=== PATIENT | male | born 1945 | race Caucasian/White ===

== ENCOUNTER → 2022-07-27 | Outpatient (CLI) | payer MEDICARE ==
--- NOTE | 2022-07-27 09:14 | US ---
EXAMINATION TYPE: US abdomen complete DATE OF EXAM: 07/27/2022 COMPARISON: NONE CLINICAL HISTORY: K76.9 LIVER DISEASE. TECHNIQUE: Multiple sonographic images of the abdomen are obtained. FINDINGS: EXAM MEASUREMENTS: Liver Length: 13.7 cm Gallbladder Wall: 0.3 cm CBD: 0.3 cm Spleen: 12.3 cm Right Kidney: 10.7 x 4.6 x 5.3 cm Left Kidney: 11.7 x 5.5 x 6.7 cm STATISTICAL ENGINEER NOTES: Pancreas: Obscured by bowel gas Liver: No suspicious masses identified. No ductal dilatation. Gallbladder: No stones seen Evidence for sonographic Flores's sign: No CBD: wnl Spleen: wnl Right Kidney: lower, lateral cyst measures 4.0 x 3.3 x 3.4 cm Left Kidney: exophytic cyst measures 1.6 x 1.5 x 1.6 cm Upper IVC: wnl Abd Aorta: wnl The liver is homogenous. The intrahepatic portion of the IVC and proximal abdominal aorta are within normal limits. There is no evidence of cholelithiasis. Common bile duct is unremarkable. The visu alized portions of the pancreas are homogenous. The spleen is unremarkable. Kidneys are symmetric a nd free of hydronephrosis. IMPRESSION: 1. No evidence for acute process. No evidence for hepatic mass. 2. Bilateral renal cysts. 3.
== END | disposition home or self-care (01) ==
LOC: RADUSWWP 08:07
PROVIDERS: ATTEND Internal Medicine Hematology & Oncology
DX: K76.9 Liver disease, unspecified (principal); N28.1 Cyst of kidney, acquired
CPT/HCPCS: 76700

== ENCOUNTER → 2022-08-17 | Outpatient (CLI) | payer MEDICARE ==
--- NOTE | 2022-08-18 06:36 | MR ---
EXAMINATION TYPE: MR sacroiliac joints wo con DATE OF EXAM: 08/17/2022 COMPARISON: None HISTORY: Ankylosing spondylitis of multiple sites in spine Multiplanar multiecho imaging of the sacroiliac joints performed without contrast. Sacroiliac joint spaces are fairly normal. No erosion. No evidence of bone edema. Sacrum and coccyx s egments have fairly normal alignment. There is posterior disc herniation at L5-S1 into the spinal can al towards left side. No focal bone destruction. There are multiple sigmoid diverticula. No sign of diverticulitis. IMPRESSION: No evidence of sacroiliitis. Posterior left-sided L5-S1 lumbar disc herniation.
== END | disposition home or self-care (01) ==
LOC: RADMRIMAIN 14:00
PROVIDERS: ATTEND Internal Medicine Rheumatology
DX: M51.37 Other intervertebral disc degeneration, lumbosacral region (principal); M45.0 Ankylosing spondylitis of multiple sites in spine
CPT/HCPCS: 72195

== ENCOUNTER → 2022-10-27 | Outpatient (CLI) | payer MEDICARE ==
[2022-10-27 15:16] LABS: AST 18 U/L (14-35); African American GFR (CKD) 94.6 (60.0-200.0); BUN/Creat Ratio 16.07 Ratio (12.00-20.00); Blood Urea Nitrogen 14.7 mg/dL (9.0-27.0); Calcium 9.4 mg/dL (8.7-10.3); Carbon Dioxide 31.6 mmol/L (20.0-27.5); Chloride 104 mmol/L (96-109); Glucose 93 mg/dL (70-110); Non-African American GFR(CKD) 81.6 (60.0-200.0); Potassium 3.6 mmol/L (3.5-5.5); Sodium 144 mmol/L (135-145)
[2022-10-27 15:17] LABS: ALT 17 U/L (10-49); LDL Cholesterol,Calculated 88.2 mg/dL (0.0-131.0); VLDL Calculation 15.16 mg/dL (5.00-40.00)
[2022-10-27 15:44] LABS: HCT 42.1 % (39.6-50.0); MCH 32.3 pg (27.0-32.0); MCHC 33.3 g/dL (32.0-37.0); Mean Platelet Volume 10.4 fL (9.5-12.2); NRBC Per 100 WBC 0 /100 WBCS (0.0-0.0); Platelet Count 125 X 10*3/uL (140-440); RBC 4.34 X 10*6/uL (4.40-5.60); RBC Morphology NORMAL; RDW 14.9 % (11.5-14.5); WBC 7.24 X 10*3/uL (4.50-10.00)
== END | disposition home or self-care (01) ==
LOC: LABWHC1 09:37
PROVIDERS: ATTEND Internal Medicine Cardiovascular Disease
DX: E78.2 Mixed hyperlipidemia (principal); I48.11 Longstanding persistent atrial fibrillation
CPT/HCPCS: 36415; 80048; 80061; 84443; 84450; 84460; 85027

== ENCOUNTER 2022-11-19 08:29 | Day surgery (SDC) | payer MEDICARE ==
[~2022-11-19 08:29] MED LIST: SODIUM CHLORIDE 0.9% 1,000 ML IV SCH
[2022-11-19] MEDS ORDERED: LIDOCAINE 2% INJ 20 MG/ML (2 ML VIAL) ONE (10:30)
[2022-11-19] MEDS ORDERED: PROPOFOL 10 MG/ML 20 ML VIAL IV ONE (10:30)
[2022-11-19 11:18] VITALS: TEMP 97
[2022-11-19 12:44] VITALS: RESP 16
[2022-11-19 13:07] VITALS: BP 130/74; PULSE 63
--- NOTE | 2022-11-20 00:39 | ECHOT ---
TRANSESOPHAGEAL ECHOCARDIOGRAM INDICATION: Persistent atrial fibrillation. PROCEDURE NOTE: After obtaining informed consent, transesophageal echocardiogram was performed in left lateral position using an Omniplane probe. Local and IV sedation were obtained by the [employer]. The patient tolerated the procedure well without any obvious immediate complications. FINDINGS: 1. There is no intracardiac thrombus within the left atrial appendage, left atrium, right atrium, or right ventricle. 2. Left atrium appears enlarged. 3. Right atrium and right ventricle seen within normal limits. 4. Left ventricle has normal size. Mild diffuse global hypokinesis with an ejection fraction of 50%. Aortic valve is a 3-leaflet valve. There is mild to moderate aortic regurgitation noted. There is mild mitral regurgitation noted. Mild tricuspid regurgitation noted. Interatrial septum, there is no evidence of left-to- right shunt by color-flow Doppler or [id number] shunt by agitated saline contrast study. Aorta shows mild to moderate atherosclerotic changes. MMODL / IJN: [id number] /
--- NOTE | 2022-11-20 13:21 | PCN ---
PROCEDURE NOTE CARDIOVERSION NOTE: INDICATION: Persistent atrial fibrillation. After making sure that the patient is adequately anticoagulated with Eliquis and confirming that the patient does not have an intracardiac thrombus on transesophageal echo, the patient underwent cardioversion with 150 joules of synchronized shocks at 150 joules of DC current. The patient converted to sinus rhythm following a single shock. He will continue the Eliquis that he is on. MMASHER / BRIDGERN: [id number] /
== END 2022-11-19 13:18 | disposition home or self-care (01) ==
LOC: OR 08:29
PROVIDERS: ATTEND Internal Medicine Cardiovascular Disease
DX: I48.19 Other persistent atrial fibrillation (principal); I08.3 Combined rheumatic disorders of mitral, aortic and tricuspid valves; M46.80 Other specified inflammatory spondylopathies, site unspecified; K21.9 Gastro-esophageal reflux disease without esophagitis; Z79.01 Long term (current) use of anticoagulants; Z79.52 Long term (current) use of systemic steroids; Z87.891 Personal history of nicotine dependence; Z79.899 Other long term (current) drug therapy
CPT/HCPCS: 93312; 93320; 93325; 92960; 93005; J2704; J2001

== ENCOUNTER → 2023-02-03 | Outpatient (CLI) | payer MEDICARE | END | disposition home or self-care (01) | LOC: LABWHC1 11:37 | PROVIDERS: ATTEND Internal Medicine Cardiovascular Disease | DX: I48.11 Longstanding persistent atrial fibrillation (principal) | CPT/HCPCS: 36415; 84443; 84450; 84460 ==

== ENCOUNTER → 2023-12-31 | Day surgery (SDC) | payer MEDICARE ==
[~2023-12-31] MED LIST changes: +LIDOCAINE 1% INJ 10MG/ML (20 ML MDV) ONE; +PROPOFOL 10 MG/ML 20 ML VIAL IV ONE; -SODIUM CHLORIDE 0.9% 1,000 ML IV SCH
[2023-12-31 08:50] VITALS: TEMP 97.3
[2023-12-31] MEDS: LACTATED RINGERS 1,000 ML IV SCH (08:52)
[2023-12-31] MEDS: IV FLUID CONTINUATION 1,000 ML IV ONE ×2 (08:53→09:48)
--- NOTE | 2023-12-31 10:06 | P.PCN ---
Date of Procedure: 12/31/23 Procedure(s) Performed: Brief history: Patient is a pleasant 78-year-old white male scheduled for an elective upper endoscopy as well as colonoscopy as a part of evaluation of GERD/atypical chest pain and screening for colon cancer. He was recently started on Granix 40 mg twice daily with some improvement in symptoms. Procedure performed: Esophagogastroduodenoscopy with biopsy Colonoscopy with snare polypectomy Preoperative diagnosis: GERD/Atypical chest pain Screening for colon cancer Anesthesia: MAC Procedure: After informed consent was obtained from the patient was brought into the endoscopy unit and IV sedation was administered by anesthesia under continuous monitoring. Initially upper endoscopy was done. The Olympus GF 160 video endoscope was inserted inserted into the mouth and esophagus intubated without any difficulty and was gradually advanced into the stomach and duodenum and c arefully examined. The bulb and second part of the duodenum appeared normal. The scope was then withdrawn into the stomach adequately insufflated with air and upon careful examination the antrum and body, reaching areas of erythema consistent with gastritis and biopsies were done from this area. Mucosa of the cardia and fundus appeared normal. The scope was then withdrawn into the esophagus. The GE junction was located at 40 cm to the incisors. It appeared irregular with no erythema erosions or ulcerations. Rest of the esophagus appeared normal. Patient tolerated the procedure well. At this time the patient continued to remain sedation. Initial digital rectal examination was normal. Olympus CF 160 video colonoscope was then inserted into the rectum and gradually advanced to the cecum without any difficulty. Careful examination was performed as the scope was gradually being withdrawn. The prep was excellent. There was a 1 cm polyp on the ileocecal valve that was removed b y snare polypectomy. The cecum, appeared normal. The ascending colon there was another 1 cm polyp removed by snare polypectomy. Rest of this ascending colon, transverse colon, descending colon, sigmoid colon and rectum appeared normal. Moderate sigmoid diverticulosis. Retroflexion was performed in the rectum and no lesions were noted. Patient tolerated the procedure well. Impression: 1. Upper endoscopy revealed mild antral gastritis but no evidence of esophagitis or Crane's esophagus 2. Colonoscopy revealed 1 cm polyp in the ileocecal valve and another 1 cm polyp in the ascending colon status post polypectomy and moderate sigmoid diverticulosis. Recommendations: Findings of this examination were discussed with the patient as well as his family. He was advised to follow-up with the biopsy results. Continue with Protonix 40 mg twice daily and follow antireflux measures. Follow-up in the office in 3 to 4 weeks. See reveals adenoma, recommended repeat colonoscopy in 3 years.
[2023-12-31 10:35] VITALS: BP 138/83; PULSE 61; RESP 16
== END ==
LOC: ORWHC2ENDO 08:22
PROVIDERS: ATTEND Internal Medicine Gastroenterology
DX: Z12.11 Encounter for screening for malignant neoplasm of colon (principal); D12.0 Benign neoplasm of cecum; D12.2 Benign neoplasm of ascending colon; K21.9 Gastro-esophageal reflux disease without esophagitis; K57.30 Diverticulosis of large intestine without perforation or abscess without bleeding; K29.70 Gastritis, unspecified, without bleeding; I48.91 Unspecified atrial fibrillation; I10 Essential (primary) hypertension; Z79.899 Other long term (current) drug therapy; Z98.890 Other specified postprocedural states
CPT/HCPCS: 88305; 43239; 45385; J2001; J2704

== ENCOUNTER → 2024-08-24 | Outpatient (CLI) | payer MEDICARE | END | disposition home or self-care (01) | LOC: LABWHC1 12:57 | PROVIDERS: ATTEND Internal Medicine Cardiovascular Disease | DX: I48.11 Longstanding persistent atrial fibrillation (principal) | CPT/HCPCS: 36415; 84443; 84450; 84460 ==

== ENCOUNTER → 2024-12-22 | Outpatient (CLI) | payer MEDICARE | END | disposition home or self-care (01) | LOC: LABWHC1 11:56 | PROVIDERS: ATTEND Internal Medicine Cardiovascular Disease | DX: I48.0 Paroxysmal atrial fibrillation (principal) | CPT/HCPCS: 36415; 84443; 84450; 84460 ==